=== PATIENT | female | born 1960 | race Two or more races ===

== ENCOUNTER 2017-07-14 10:10 | Emergency (ER) | payer SELFPAY ==
[~2017-07-14] VITALS: Ht 144.8 cm; Wt 56.0 kg
[2017-07-14 16:00] VITALS: BP 132/67
== END 2017-07-14 22:23 | disposition home or self-care (01) ==
LOC: EME 10:10
PROC: 0HQ0XZZ Repair Scalp Skin, External Approach (ICD-10-PCS; principal; 2017-07-14)
DX: S09.90XA Unspecified injury of head, initial encounter (principal); Y00.XXXA Assault by blunt object, initial encounter; Y92.59 Other trade areas as the place of occurrence of the external cause; G40.909 Epilepsy, unspecified, not intractable, without status epilepticus; S01.01XA Laceration without foreign body of scalp, initial encounter
CPT/HCPCS: 70450; 99281; 99284